=== PATIENT | female | born 1990 | race Caucasian/White ===

== ENCOUNTER 2017-02-19 22:10 | Emergency (ER) | payer OTHER ==
[~2017-02-19] VITALS: Ht 162.6 cm; Wt 61.5 kg
[2017-02-19 22:42] VITALS: Ht 162.6 cm; Wt 61.5 kg
[2017-02-20] MEDS ORDERED: LIDOCAINE 1% (MDV) 20 ML INJ SC ONE
[2017-02-20] MEDS ORDERED: LIDOCAINE 1%/EPI 30 ML INJ INJ STA (00:17)
[2017-02-20] MEDS ORDERED: LIDOCAINE 1%/EPI 30 ML INJ ONE (00:18)
--- NOTE | 2017-02-20 00:31 | RADRPT ---
PROCEDURE: XR left Forearm. CLINICAL INDICATION: Glass injury. Rule out foreign body. TECHNIQUE: AP and lateral views of the left forearm were obtained. COMPARISON: No prior studies are available for comparison. FINDINGS: There is soft tissue irregularity overlying the distal diaphysis of the ulna. There is no radiopaque foreign body. There is no fracture. Joint relationships are maintained. Bone mineralization is wi thin normal limits. Soft tissues are otherwise unremarkable. IMPRESSION: Soft tissue irregularity overlying the distal diaphysis of the ulna. No radiopaque foreign body or u nderlying fracture. RPTAT: [facility]K .Len Hoffmann MD, Date Time Electronically viewed and signed by .Len Hoffmann MD, on 02/20/2017 00:31 .K/
[2017-02-20 01:35] LABS: BASOPHILS % 0.3 % (0.0-2.0); EOSINOPHILS # 0.1 10^3/ul (0.0-0.5); EOSINOPHILS % 1.3 % (0.0-7.0); HEMATOCRIT 37.8 % (37.0-47.0); HEMOGLOBIN 13.1 g/dl (12.0-16.0); LYMPHOCYTES % 31.1 % (15.0-51.0); MEAN CORPUSCULAR HEMOGLOBIN 32.9 pg (29.0-33.0); MEAN CORPUSCULAR HGB CONC 34.7 g/dl (32.0-37.0); MEAN PLATELET VOLUME 9.4 fl (7.4-10.4); MONOCYTE # 0.5 10^3/ul (0.3-0.9); MONOCYTES % 4.7 % (0.0-11.0); NEUTROPHIL # 5.9 10^3/ul (1.6-7.5); NEUTROPHILS % 62.4 % (39.0-77.0); PLATELET COUNT 249 10^3/UL (140-415); RED BLOOD COUNT 3.98 10^6/ul (4.20-5.40); RED CELL DISTRIBUTION WIDTH 12.3 % (11.5-14.5); WHITE BLOOD COUNT 9.5 10^3/ul (4.8-10.8)
--- NOTE | 2017-02-20 01:42 | ERA ---
ER Documentation Chief Complaint Date/Time DATE: 02/20/17 TIME: 01:39 Chief Complaint WRIST LAC/CUTTING WITH SI, HISTORY OF DEPRESSION/BORDER LINE/ANXIETY HPI This is a 26-year-old female with a history of depression, anxiety, borderline personality disorder who is here for suicidal ideation and attempt. Patient states there is no specific trigger tonight but she took a glass and broke it and cut herself on purpose to the left upper chest, left wrist and forearm and right thigh. Patient states she still actively suicidal with the plan of stabbing herself in the heart with a knife. Patient states she did not use any drugs but did drink a third of a bottle of wine prior to arrival ROS All systems reviewed and are negative except as per history of present illness. Allergies Allergies: Coded Allergies: No Known Allergy (Unverified , 02/19/17) PMhx/Soc Hx Alcohol Use: Yes Hx Substance Use: No Hx Tobacco Use: Yes Smoking Status: Current every day smoker FmHx Family History: No coronary disease Physical Exam Vitals Vital Signs Date Time Temp Pulse Resp B/P Pulse Ox O2 Delivery O2 Flow Rate FiO2 02/19/17 22:42 99.4 84 20 118/69 98 Physical Exam Const: Well-developed, well-nourished Head: Atraumatic, normocephalic Eyes: Normal Conjunctiva, PERRLA, EOMI, normal sclera, no nystagmus ENT: Normal External Ears, Nose and Mouth, moist mucus membranes. Neck: Full range of motion. No meningismus, no lymphadenopathy. Resp: Clear to auscultation bilaterally, no wheezing, rhonchi, rales Cardio: Regular rate and rhythm, no murmurs, S1 S2 present Abd: Soft, non tender x 4, non distended. Normal bowel sounds, no guarding or rebound, no pulsitile abdominal masses or bruits Skin: No petechiae or rashes, no ecchymosis , no maculopapular rash there are linear abrasions to the left upper chest, right thigh, left forearm with 3 areas of lacerations to the left forearm Back: No midline or flank tenderness Ext: No cyanosis, or edema, FROM x 4, normal inspection, neurovascularly intact x 4 Neur: Awake and alert, STR 5/5 x 4, sensation intact x 4, no focal findings, cerebellum intact Psych: Active actively admits to SI Result Diagram: 02/20/17 0110 Results 24 hrs Laboratory Tests Test 02/20/17 01:10 White Blood Count 9.510^3/ul Red Blood Count 3.9810^6/ul Hemoglobin 13.1g/dl Hematocrit 37.8% Mean Corpuscular Volume 95.0fl Mean Corpuscular Hemoglobin 32.9pg Mean Corpuscular Hemoglobin Concent 34.7g/dl Red Cell Distribution Width 12.3% Platelet Count 27861^3/UL Mean Platelet Volume 9.4fl Neutrophils % 62.4% Lymphocytes % 31.1% Monocytes % 4.7% Eosinophils % 1.3% Basophils % 0.3% Nucleated Red Blood Cells % 0.0/100WBC Neutrophils # 5.910^3/ul Lymphocytes # 3.010^3/ul Monocytes # 0.510^3/ul Eosinophils # 0.110^3/ul Basophils # 0.010^3/ul Nucleated Red Blood Cells # 0.010^3/ul Current Medications Medications (Trade) Dose Ordered Sig/Darlene Route PRN Reason Start Time Stop Time Status Last Admin Dose Admin Lidocaine (Xylocaine 1% (Mdv) 20 ml) 20 ml ONCE ONCE SC 02/20/17 00:00 02/20/17 00:02 DC Lidocaine/ Epinephrine (Xylocaine 1%/ Epi (Pf)) 30 ml ONCE STAT INJ 02/20/17 00:17 02/20/17 00:18 DC 02/20/17 00:45 Lidocaine/ Epinephrine (Xylocaine 1%/ Epi (Pf)) 30 ml STK-MED ONCE .ROUTE 02/20/17 00:18 02/20/17 00:19 DC Procedures/MDM Laceration Repair by me: Anesthesia: 1% lidocaine locally Location: Left wrist Tendon/Joint/Nerves: No injury Foreign body: None detected after copious irrigation and exploration Technique: Simple Interrupted Sutures Complexity: No subcutaneous sutures/mucosal repair/ edge excision Post Closure Length: 1.5 cm Patient's bleeding was easily controlled in the department and there is no indication of anemia. No evidence of compartment syndrome, neurologic injury, vascular injury, open joint, tendon laceration, or foreign body. Patient is appropriate for outpatient follow up. 48 hour wound check. Scar minimization instructions given. Laceration Repair by me: Anesthesia: 1% lidocaine locally Location: Left forearm Tendon/Joint/Nerves: No injury Foreign body: None detected after copious irrigation and exploration Technique: Simple Interrupted Sutures Complexity: No subcutaneous sutures/mucosal repair/ edge excision Post Closure Length: 2 cm Patient's bleeding was easily controlled in the department and there is no indication of anemia. No evidence of compartment syndrome, neurologic injury, vascular injury, open joint, tendon laceration, or foreign body. Patient is appropriate for outpatient follow up. 48 hour wound check. Scar minimization instructions given. Laceration Repair by me: Anesthesia: 1% lidocaine locally Location: Left forearm Tendon/Joint/Nerves: No injury Foreign body: None detected after copious irrigation and exploration Technique: Simple Interrupted Sutures Complexity: No subcutaneous sutures/mucosal repair/ edge excision Post Closure Length: 1.5 cm Patient's bleeding was easily controlled in the department and there is no indication of anemia. No evidence of compartment syndrome, neurologic injury, vascular injury, open joint, tendon laceration, or foreign body. Patient is appropriate for outpatient follow up. 48 hour wound check. Scar minimization instructions given. Patient will be evaluated by telemetry psychiatry for transfer to inpatient. Departure Diagnosis: Primary Impression: Suicide threat or attempt Condition: BOBBY Eden DO Feb 20, 2017 01:42
[2017-02-20 02:05] LABS: ALANINE AMINOTRANSFERASE 28 IU/L (13-69); ALBUMIN 4.2 g/dl (3.3-4.9); ALBUMIN/GLOBULIN RATIO 1.27; ALKALINE PHOSPHATASE 46 IU/L (42-121); ANION GAP 14 (8-16); ASPARTATE AMINO TRANSFERASE 18 IU/L (15-46); BILIRUBIN,INDIRECT 0.4 mg/dl (0-1.1); BILIRUBIN,TOTAL 0.4 mg/dl (0.2-1.3); BLOOD UREA NITROGEN 11 mg/dl (7-20); CALCIUM 9.3 mg/dl (8.4-10.2); CARBON DIOXIDE 25 mmol/L (21-31); CHLORIDE 108 mmol/L (97-110); CREATININE 0.69 mg/dl (0.44-1.00); GLUCOSE 116 mg/dl (70-220); POTASSIUM 4.2 mmol/L (3.5-5.1); SODIUM 143 mmol/L (135-144); TOTAL PROTEIN 7.5 g/dl (6.1-8.1)
[2017-02-20] MEDS ORDERED: DIPH-437 PO (02:19)
[2017-02-20] MEDS ORDERED: PARO30TA48 PO (02:19)
[2017-02-20 02:22] LABS: ACETAMINOPHEN < 10.0 ug/ml (10.0-30.0); ETHANOL < 10.0 mg/dl; SALICYLATE < 1.0 mg/dl (5.0-30.0)
[2017-02-20 02:28] LABS: CANNABINOIDS Negative (NEGATIVE)
[2017-02-20 02:36] LABS: BARBITURATES Negative (NEGATIVE); BENZODIAZEPINES Negative (NEGATIVE); COCAINE Negative (NEGATIVE); OPIATES Negative (NEGATIVE)
--- NOTE | 2017-02-20 03:13 | PSY ---
Date/Time of Note Date/Time of Note DATE: 02/20/17 TIME: 03:00 Psychiatric Subjective Eval Consent Pt consented to telemedicine: Yes Subjective Evaluation Patient location: emergency Chief Complaint: WRIST LAC/CUTTING WITH SI, HISTORY OF DEPRESSION/BORDER LINE/ ANXIETY Reason for consult: suicidal History of present illness Patient is 26-year-old female living with a roommate with PPH of bipolar do type II , anxiety and borderline personality disorder who came to the ER due to suicidal ideation and attempt. Patient took a glass, broke it and cut herself on purpose to the left upper chest, left wrist and forearm and right thigh. Patient states she still feeling suicidal with the plan of stabbing herself in the heart with a knife. Patient states she did not use any drugs but drank a third of a bottle of wine prior to arrival . she states that she has been feeling suicidal for years, she is feeling depressed, hopeless and helpless because she does not get better, she states that she had some hypomanic episode in the past but remains mostly depressed and anxious. she suffers from insomnia, she has no energy and motivation during the day. she denies au current or past psychotic symptoms. Past psychiatric history several past suicidal attempt Hospitalization: no Medical history Problems Medical Problems: (1) Suicide threat or attempt Status: Acute Allergies: Coded Allergies: benztropine (Unverified Allergy, Unknown, RASHES, 02/20/17) zinc (Unverified Allergy, Unknown, RASHES, 02/20/17) Substance Abuse Substance use: No known substance abuse Social History Marital status: single Level of education: hs DPA/Conservatorship: No Occupation/Detention: none Psychiatric Objective Eval Review of Systems: Review of Systems: Not Applicable Physical Examination: Physical Examination: Applicable Sleep: Insomnia Appetite: Decreased Energy: Decreased Interest: Decreased Mental Status Examination: Appearance: Groomed Eye Contact: Good Psychomotor Activity: Normal Speech: Clear AFFECT: Depressed Mood: Depressed Though Process: Linear Thought Content: Normal Suicidal: Yes Homicidal: No On 72 hour hold: No Orientation: x4 Cognition: Alert Insight: Impared Judgement: Impared Attention Span: Intact Laboratory Results Laboratory Tests Test 02/20/17 01:10 02/20/17 01:29 White Blood Count 9.510^3/ul Red Blood Count 3.9810^6/ul Hemoglobin 13.1g/dl Hematocrit 37.8% Mean Corpuscular Volume 95.0fl Mean Corpuscular Hemoglobin 32.9pg Mean Corpuscular Hemoglobin Concent 34.7g/dl Red Cell Distribution Width 12.3% Platelet Count 77615^3/UL Mean Platelet Volume 9.4fl Neutrophils % 62.4% Lymphocytes % 31.1% Monocytes % 4.7% Eosinophils % 1.3% Basophils % 0.3% Nucleated Red Blood Cells % 0.0/100WBC Neutrophils # 5.910^3/ul Lymphocytes # 3.010^3/ul Monocytes # 0.510^3/ul Eosinophils # 0.110^3/ul Basophils # 0.010^3/ul Nucleated Red Blood Cells # 0.010^3/ul Sodium Level 143mmol/L Potassium Level 4.2mmol/L Chloride Level 108mmol/L Carbon Dioxide Level 25mmol/L Anion Gap 14 Blood Urea Nitrogen 11mg/dl Creatinine 0.69mg/dl Glucose Level 116mg/dl Calcium Level 9.3mg/dl Total Bilirubin 0.4mg/dl Direct Bilirubin 0.00mg/dl Indirect Bilirubin 0.4mg/dl Aspartate Amino Transf (AST/SGOT) 18IU/L Alanine Aminotransferase (ALT/SGPT) 28IU/L Alkaline Phosphatase 46IU/L Total Protein 7.5g/dl Albumin 4.2g/dl Globulin 3.30g/dl Albumin/Globulin Ratio 1.27 Salicylates Level < 1.0mg/dl Acetaminophen Level < 10.0ug/ml Ethyl Alcohol Level < 10.0mg/dl Urine Opiates Screen Negative Urine Barbiturates Negative Urine Amphetamines Screen Negative Urine Benzodiazepines Screen Negative Urine Cocaine Screen Negative Urine Cannabinoids Negative Assessment and Plan Assessment/Diagnosis [place] I: mood do nos anxiety do nos [place] II: borderline personality do [place] III: as per record [place] IV: poor social support [place] V: gaf 25 Recommendation/Plan Medication Management ativan 1 mg po bid Follow-up/Disposition Please admit patient on unvoluntary status due to Danger to self, In my opinion, patient currently MEETS criterion for inpatient care and CANNOT be safely treated ~at a lower level of care today as evidenced by the following risk factors: ~Current and Recent Suicidal Ideation and attempt Previous suicide attempt and~ severe self-destructive behavior Intense feelings of hopelessness and lack of future orientation. Significant recent DETERIORATION in function, behavior and thought processes Patient has failed outpatient and requires further inpatient assessment [id number] Recommendation: AGNES Delvalle MD Feb 20, 2017 03:12
--- NOTE | 2017-02-20 13:58 | QN ---
Documentation Comment Observation Note: Indication: Suicidal ideation Duration: Greater than 8 hours Family history: As described in HPI The patient was observed with serial exams over the above timeframe. The patient continued to be well-appearing, and observation continued without complication. The patient has been placed on a 5150 hold and is going to be transferred to [facility]. MARTIN PAVON MD Feb 20, 2017 13:58
[2017-02-20 18:23] VITALS: BP 107/52; PULSE 71; RESP 20; TEMP 98.1
== END 2017-02-20 18:26 ==
LOC: E/R 22:10
DX: S51.812A Laceration without foreign body of left forearm, initial encounter (principal); S61.512A Laceration without foreign body of left wrist, initial encounter; F17.210 Nicotine dependence, cigarettes, uncomplicated; X78.0XXA Intentional self-harm by sharp glass, initial encounter; Y92.9 Unspecified place or not applicable
CPT/HCPCS: 12002; 73090; 80053; 80306; 80307; 85025; Z7502; Z7610